=== PATIENT | male | born 1990 | race Caucasian/White ===

== ENCOUNTER 2017-10-15 16:36 | Inpatient (IN) | payer MEDICAID ==
[~2017-10-15] VITALS: Ht 171.4 cm; Wt 81.6 kg
[2017-10-15] MEDS ORDERED: MORPHINE SULFATE 2 MG/ML CPJ (NOT FOR IM USE) IV ONE (23:45)
[2017-10-15] MEDS ORDERED: FAMOTIDINE 20MG/2ML VIAL IV SCH (23:45)
[2017-10-15] MEDS ORDERED: ONDANSETRON HCL 4MG/2ML VIAL IV ONE (23:45)
[2017-10-15 23:58] LABS: HEMATOCRIT. 45.3 % (42.0-52.0); HEMOGLOBIN. 15.7 g/dL (14.0-18.0); MEAN CORPUSCULAR HEMOGLOBIN 34.5 pg (28.0-32.0); MEAN CORPUSCULAR VOLUME 99.5 fL (80.0-94.0); PLATELET 204 x1000/uL (130-400); RED BLOOD CELL COUNT 4.55 mill/uL (4.7-6.1); RED CELL DISTRIBUTION WIDTH 12.4 % (11.6-14.6)
[2017-10-16 00:04] LABS: CHLORIDE 98 mEq/L (98-107)
[2017-10-16] MEDS ORDERED: MORPHINE SULFATE 4 MG/ML CPJ (NOT FOR IM USE) IV ONE ×2 (00:15→01:30)
[2017-10-16 01:20] LABS: PLATELET ESTIMATE NORMAL
[2017-10-16] MEDS ORDERED: SODIUM CHLORIDE 0.9% 1,000 ML IV ONE ×2 (01:21→02:12)
[2017-10-16] MEDS ORDERED: ONDANSETRON 4MG ODT PO ONE (01:30)
[2017-10-16] MEDS ORDERED: MAGNESIUM/ALUMINUM HYDROXIDE/SIMETHICONE 30ML UDC PO ONE (01:30)
[2017-10-16] MEDS ORDERED: PIPERACILLIN/TAZ 2.25G PREMIX 50 ML IV ONE (03:00)
[2017-10-16 03:05] LABS: ETHANOL BLOOD < 10 mg/dL
[2017-10-16 04:25] LABS: CLARITY URINE CLEAR (CLEAR); COLOR URINE ORANGE (YELLOW); KETONES URINE 3+ (NEGATIVE); LEUKOCYTE ESTERASE URINE 1+ (NEGATIVE); NITRITE URINE POSITIVE (NEGATIVE); OCCULT BLOOD URINE NEGATIVE (NEGATIVE); PH URINE 7.5 (4.5-8.0); PROTEIN URINE 1+ (NEGATIVE)
[2017-10-16 04:36] LABS: *AMPHETAMINES SCREEN URINE NEGATIVE (NEGATIVE); *BARBITURATES SCREEN URINE NEGATIVE (NEGATIVE); *BENZODIAZEPINES SCREEN URINE NEGATIVE (NEGATIVE); *COCAINE SCREEN URINE NEGATIVE (NEGATIVE); METHADONE URINE SCREEN NEGATIVE (NEGATIVE)
[2017-10-16 04:37] LABS: CANNABINOID URINE SCREEN PRESUMTIVE POSITIVE (NEGATIVE); OPIATES URINE SCREEN PRESUMTIVE POSITIVE (NEGATIVE); PHENCYCLIDINE URINE SCREEN NEGATIVE (NEGATIVE)
[2017-10-16] MEDS: CEFTRIAXONE 1 G PREMIX 50 ML IV NR ×2 (05:50→06:12)
[2017-10-16] MEDS ORDERED: KETOROLAC 15MG/ML VIAL IV PRN (09:00)
[2017-10-16] MEDS ORDERED: ONDANSETRON HCL 4MG/2ML VIAL IV PRN (09:00)
[2017-10-16] MEDS ORDERED: DOCUSATE SODIUM 100MG CAPSULE PO PRN (09:00)
[2017-10-16] MEDS ORDERED: ACETAMINOPHEN 325MG TABLET PO PRN (09:00)
[2017-10-16] MEDS ORDERED: IPRATROPIUM/ALBUTEROL 0.5-3(2.5)MG/3ML NEB INH PRN (09:00)
[2017-10-16] MEDS ORDERED: MAGNESIUM/ALUMINUM HYDROXIDE/SIMETHICONE 30ML UDC PO PRN (09:00)
[2017-10-16] MEDS ORDERED: NA PHOS,M-B/NA PHOS,DI-BA ENEMA 118ML PR PRN (09:00)
[2017-10-16] MEDS ORDERED: DIPHENHYDRAMINE 50MG/ML VIAL IV PRN (09:00)
[2017-10-16] MEDS ORDERED: GUAIFENESIN 200MG/10ML SUGAR FREE UDC PO PRN (09:00)
[2017-10-16] MEDS ORDERED: CLONIDINE 0.1MG TABLET PO PRN (09:00)
[2017-10-16] MEDS ORDERED: LORAZEPAM 0.5MG TABLET PO PRN (09:00)
[2017-10-16 09:49] LABS: HEMOGLOBIN. 15.2 g/dL (14.0-18.0); MEAN CORPUSCULAR HEMOGLOBIN 35.3 pg (28.0-32.0); MEAN CORPUSCULAR VOLUME 100.1 fL (80.0-94.0); MEAN PLATELET VOLUME 9.8 fl (7.4-10.4); PLATELET 170 x1000/uL (130-400); RED CELL DISTRIBUTION WIDTH 12.5 % (11.6-14.6)
[2017-10-16 09:58] LABS: AMYLASE 81 IU/L (25-115); CHLORIDE 106 mEq/L (98-107)
[2017-10-16 11:25] LABS: PLATELET ESTIMATE NORMAL
[2017-10-16 12:00] VITALS: BP 136/92
[2017-10-16] MEDS: SUCRALFATE 1 G/10 ML UDC PO SCH ×3 (12:24→20:08)
[2017-10-16] MEDS: FAMOTIDINE 20MG/2ML VIAL IV SCH ×2 (13:24→20:08)
[2017-10-16] MEDS: SODIUM CHLORIDE 0.9% 1,000 ML IV SCH ×2 (15:29→18:28)
[2017-10-16 16:00] VITALS: BP 140/96
[2017-10-16] MEDS ORDERED: ZOLPIDEM TARTRATE 5MG TABLET PO PRN (19:00)
[2017-10-16 20:00] VITALS: BP 146/95
[2017-10-17] VITALS: BP 145/95
[2017-10-17 04:00] VITALS: BP 138/87
[2017-10-17] MEDS: SODIUM CHLORIDE 0.9% 1,000 ML IV SCH ×2 (06:00→08:00)
[2017-10-17] MEDS: SUCRALFATE 1 G/10 ML UDC PO SCH ×2 (06:22→12:20)
[2017-10-17 08:00] VITALS: BP 131/88
[2017-10-17] MEDS: FAMOTIDINE 20MG/2ML VIAL IV SCH (09:22)
[2017-10-17 11:19] VITALS: BP 131/88
[2017-10-17 12:00] VITALS: BP 133/89
== END 2017-10-17 12:38 | disposition home or self-care (01) | DRG 282 ==
LOC: ER 19:27 → ENRESERV 10-16 10:19 → 6EST 10-16 11:44
PROVIDERS: ADMIT Internal Medicine; ATTEND Internal Medicine
DX: K85.20 Alcohol induced acute pancreatitis without necrosis or infection (principal); K70.0 Alcoholic fatty liver; N39.0 Urinary tract infection, site not specified; F10.10 Alcohol abuse, uncomplicated; F17.210 Nicotine dependence, cigarettes, uncomplicated
CPT/HCPCS: 36415; 74176; 76705; 80053; 80305; 81003; 82150; 83036; 83605; 83690; 85025; 87086; 96361; 96365; 96375; 96376; 99285; G0482; J0696; J1885; J2270; J2405; J3490; J7030

== ENCOUNTER 2018-08-28 22:31 | Emergency (ER) | payer MEDICAID | END 2018-08-28 23:45 | disposition left against medical advice (07) | LOC: ER 22:31 | DX: Z53.21 Procedure and treatment not carried out due to patient leaving prior to being seen by health care provider (principal) ==

== ENCOUNTER 2018-09-14 07:17 | Inpatient (IN) | payer MEDICAID ==
[~2018-09-14] VITALS: Ht 172.7 cm; Wt 5.9 kg
[2018-09-14] MEDS ORDERED: GABA-533 MT (07:36)
[2018-09-14] MEDS ORDERED: ONDANSETRON HCL 4MG/2ML INJ IV STA (13:38)
[2018-09-14] MEDS ORDERED: SODIUM CHLORIDE 0.9% 1,000 ML IV ONE ×2 (13:38→16:45)
[2018-09-14] MEDS ORDERED: LORAZEPAM 1MG TABLET PO ONE (13:45)
[2018-09-14 14:19] LABS: BASOPHILS % 1.3 % (0.0-2.0); EOSINOPHILS % 0.5 % (0.0-5.0); HEMATOCRIT. 48.5 % (42.0-52.0); LYMPHOCYTES % 19.4 % (20.0-50.0); MEAN CORPUSCULAR HEMOGLOBIN 33.2 pg (28.0-32.0); MEAN CORPUSCULAR VOLUME 94.9 fL (80.0-94.0); MONOCYTES % 7.4 % (2.0-8.0); NEUTROPHILS % 71.4 % (40.0-76.0); PLATELET 226 x1000/uL (130-400); RED BLOOD CELL COUNT 5.11 mill/uL (4.7-6.1); RED CELL DISTRIBUTION WIDTH 13.2 % (11.6-14.6)
[2018-09-14 14:23] LABS: CHLORIDE 103 mEq/L (98-107)
[2018-09-14 14:25] LABS: PROTHROMBIN TIME 10.3 sec (9.1-11.1)
[2018-09-14] MEDS ORDERED: MORPHINE SULFATE 4 MG/ML CPJ (NOT FOR IM USE) IV ONE ×2 (14:30→16:15)
[2018-09-14 14:31] LABS: ETHANOL BLOOD 116 mg/dL
[2018-09-14] MEDS ORDERED: ONDANSETRON HCL 4MG/2ML INJ IV PRN (16:45)
[2018-09-14] MEDS ORDERED: LORAZEPAM 2MG/ML CPJ IV PRN (16:45)
[2018-09-14] MEDS ORDERED: HYDROCODONE/ACETAMINOPHEN 5/325MG TABLET PO PRN (16:45)
[2018-09-14 18:20] VITALS: BP 148/64
[2018-09-14] MEDS ORDERED: SODIUM CHLORIDE 0.9% 1,000 ML IV SCH (18:30)
[2018-09-14] MEDS: ENOXAPARIN 40MG/0.4ML SYR SUBCUT SCH (19:51)
[2018-09-14] MEDS: THIAMINE HCL 100MG TABLET PO SCH (19:51)
[2018-09-14] MEDS: MORPHINE SULFATE 4 MG/ML CPJ (NOT FOR IM USE) IV PRN ×2 (19:52→23:55)
[2018-09-14 20:00] VITALS: BP 139/74
[2018-09-14 23:02] LABS: CLARITY URINE CLEAR (CLEAR); COLOR URINE ORANGE (YELLOW); KETONES URINE 3+ (NEGATIVE); LEUKOCYTE ESTERASE URINE TRACE (NEGATIVE); NITRITE URINE POSITIVE (NEGATIVE); OCCULT BLOOD URINE NEGATIVE (NEGATIVE); PH URINE 5.5 (4.5-8.0); PROTEIN URINE TRACE (NEGATIVE); SPECIFIC GRAVITY URINE 1.029 (1.005-1.030)
[2018-09-14 23:15] LABS: *AMPHETAMINES SCREEN URINE NEGATIVE (NEGATIVE); *BARBITURATES SCREEN URINE NEGATIVE (NEGATIVE); *BENZODIAZEPINES SCREEN URINE NEGATIVE (NEGATIVE); *COCAINE SCREEN URINE NEGATIVE (NEGATIVE); METHADONE URINE SCREEN NEGATIVE (NEGATIVE); OPIATES URINE SCREEN PRESUMTIVE POSITIVE (NEGATIVE); PHENCYCLIDINE URINE SCREEN NEGATIVE (NEGATIVE)
[2018-09-14 23:16] LABS: CANNABINOID URINE SCREEN PRESUMTIVE POSITIVE (NEGATIVE)
[2018-09-14] MEDS ORDERED: CLONIDINE 0.1MG TABLET PO PRN (23:45)
[2018-09-14] MEDS: SODIUM CHLORIDE 0.9% 1,000 ML IV SCH (23:58)
[2018-09-15] VITALS: BP 169/76
[2018-09-15 04:00] VITALS: BP 134/78
[2018-09-15 04:05] VITALS: BP 134/78
[2018-09-15] MEDS: THIAMINE HCL 100MG TABLET PO SCH (09:50)
[2018-09-15 11:28] LABS: BASOPHILS % 1.4 % (0.0-2.0); EOSINOPHILS % 2.1 % (0.0-5.0); HEMATOCRIT. 42.3 % (42.0-52.0); HEMOGLOBIN. 14.5 g/dL (14.0-18.0); LYMPHOCYTES % 18.9 % (20.0-50.0); MEAN CORPUSCULAR HEMOGLOBIN 32.8 pg (28.0-32.0); MEAN CORPUSCULAR VOLUME 95.7 fL (80.0-94.0); MEAN PLATELET VOLUME 9.7 fl (7.4-10.4); MONOCYTES % 11.4 % (2.0-8.0); NEUTROPHILS % 66.2 % (40.0-76.0); PLATELET 185 x1000/uL (130-400); RED BLOOD CELL COUNT 4.42 mill/uL (4.7-6.1); RED CELL DISTRIBUTION WIDTH 13.2 % (11.6-14.6)
[2018-09-15 11:35] LABS: CHLORIDE 103 mEq/L (98-107)
[2018-09-15 12:00] VITALS: BP 108/89
[2018-09-15] MEDS: SODIUM CHLORIDE 0.9% 1,000 ML IV SCH ×2 (12:58→20:45)
[2018-09-15] MEDS: CHLORDIAZEPOXIDE 5 MG CAPSULE PO SCH ×2 (14:45→21:43)
[2018-09-15 16:00] VITALS: BP 135/86
[2018-09-15 20:00] VITALS: BP 135/102
[2018-09-15] MEDS: ENOXAPARIN 40MG/0.4ML SYR SUBCUT SCH (20:45)
[2018-09-15] MEDS ORDERED: CEFTRIAXONE 1 G PREMIX 50 ML IV SCH (22:00)
[2018-09-16] VITALS: BP 138/72
[2018-09-16] MEDS: MORPHINE SULFATE 4 MG/ML CPJ (NOT FOR IM USE) IV PRN (03:12)
[2018-09-16] MEDS: SODIUM CHLORIDE 0.9% 1,000 ML IV SCH ×2 (03:12→08:28)
[2018-09-16 04:00] VITALS: BP 128/84
[2018-09-16] MEDS: CHLORDIAZEPOXIDE 5 MG CAPSULE PO SCH ×2 (05:21→13:52)
[2018-09-16 06:33] LABS: BASOPHILS % 1.4 % (0.0-2.0); EOSINOPHILS % 2.2 % (0.0-5.0); MEAN CORPUSCULAR HEMOGLOBIN 33.3 pg (28.0-32.0); MEAN CORPUSCULAR VOLUME 95.6 fL (80.0-94.0); MEAN PLATELET VOLUME 9.9 fl (7.4-10.4); MONOCYTES % 12.1 % (2.0-8.0); NEUTROPHILS % 62.3 % (40.0-76.0); PLATELET 173 x1000/uL (130-400); RED CELL DISTRIBUTION WIDTH 13.1 % (11.6-14.6)
[2018-09-16 06:34] LABS: CHLORIDE 108 mEq/L (98-107)
[2018-09-16 06:40] LABS: PHOSPHORUS 3.2 mg/dL (2.5-4.9)
[2018-09-16 08:22] VITALS: BP 137/94
[2018-09-16] MEDS: THIAMINE HCL 100MG TABLET PO SCH (08:28)
[2018-09-16 12:00] VITALS: BP 130/70
[2018-09-16 13:09] VITALS: BP 139/72
[2018-09-16] MEDS ORDERED: SODIUM POLYSTYRENE SULFONATE 15 G/60 ML BOT PO SCH (14:00)
[2018-09-16 14:35] VITALS: BP 130/70
== END 2018-09-16 15:04 | disposition home or self-care (01) | DRG 282 ==
LOC: ER 07:17 → 8WST 16:26 → ENRESERV 17:05
PROVIDERS: ADMIT Internal Medicine Nephrology; ATTEND Internal Medicine Nephrology
DX: K85.20 Alcohol induced acute pancreatitis without necrosis or infection (principal); K76.0 Fatty (change of) liver, not elsewhere classified; G62.9 Polyneuropathy, unspecified; F10.239 Alcohol dependence with withdrawal, unspecified; F17.200 Nicotine dependence, unspecified, uncomplicated; F32.9 Major depressive disorder, single episode, unspecified; F41.9 Anxiety disorder, unspecified; K86.1 Other chronic pancreatitis
CPT/HCPCS: 36415; 80048; 80305; 83735; 84100; 96374; 99285; J0696; J1650; J2270; J2405; J7030

== ENCOUNTER 2019-05-30 21:31 | Inpatient (IN) | payer MEDICAID ==
[~2019-05-30] VITALS: Ht 171.4 cm; Wt 81.6 kg
[2019-05-30] MEDS: BLOOD SUGAR DIAGNOSTIC STRIP TEST SCH (21:00)
[~2019-05-30 21:31] MED LIST: GABA-533 MT
[2019-05-30] MEDS ORDERED: SODIUM CHLORIDE 0.9% 1,000 ML IV ONE (22:19)
[2019-05-30] MEDS ORDERED: CHLORDIAZEPOXIDE 25MG CAPSULE PO ONE (22:30)
[2019-05-30 23:10] LABS: BASOPHILS % 0.6 % (0.0-2.0); EOSINOPHILS % 0.3 % (0.0-5.0); HEMATOCRIT. 44.7 % (42.0-52.0); HEMOGLOBIN. 15.4 g/dL (14.0-18.0); MEAN CORPUSCULAR HEMOGLOBIN 33.7 pg (28.0-32.0); MEAN CORPUSCULAR VOLUME 97.9 fL (80.0-94.0); MEAN PLATELET VOLUME 10.1 fl (7.4-10.4); MONOCYTES % 6.2 % (2.0-8.0); NEUTROPHILS % 84.9 % (40.0-76.0); PLATELET 229 x1000/uL (130-400); RED BLOOD CELL COUNT 4.57 mill/uL (4.7-6.1); RED CELL DISTRIBUTION WIDTH 11.9 % (11.6-14.6)
[2019-05-30 23:13] LABS: CLARITY URINE CLEAR (CLEAR); COLOR URINE DARK YELLOW (YELLOW); KETONES URINE 1+ (NEGATIVE); LEUKOCYTE ESTERASE URINE NEGATIVE (NEGATIVE); NITRITE URINE NEGATIVE (NEGATIVE); OCCULT BLOOD URINE NEGATIVE (NEGATIVE); PH URINE 5.5 (4.5-8.0); PROTEIN URINE TRACE (NEGATIVE)
[2019-05-30 23:16] LABS: CHLORIDE 106 mEq/L (98-107)
[2019-05-30 23:20] LABS: ETHANOL BLOOD < 10 mg/dL
[2019-05-30 23:23] LABS: *AMPHETAMINES SCREEN URINE NEGATIVE (NEGATIVE); *BARBITURATES SCREEN URINE NEGATIVE (NEGATIVE)
[2019-05-30 23:24] LABS: *BENZODIAZEPINES SCREEN URINE PRESUMTIVE POSITIVE (NEGATIVE); *COCAINE SCREEN URINE NEGATIVE (NEGATIVE); CANNABINOID URINE SCREEN PRESUMTIVE POSITIVE (NEGATIVE); METHADONE URINE SCREEN NEGATIVE (NEGATIVE); OPIATES URINE SCREEN NEGATIVE (NEGATIVE); PHENCYCLIDINE URINE SCREEN NEGATIVE (NEGATIVE)
[2019-05-31] MEDS ORDERED: PIPERACILLIN/TAZOBACTAM 3.375GM/50ML PREMIX IV SCH (00:15)
[2019-05-31] MEDS ORDERED: CHLORDIAZEPOXIDE 25MG CAPSULE PO SCH (00:15)
[2019-05-31] MEDS ORDERED: MORPHINE SULFATE 4 MG/ML CPJ (NOT FOR IM USE) IV SCH (00:15)
[2019-05-31] MEDS ORDERED: FAMOTIDINE 20MG/2ML VIAL IV SCH (03:00)
[2019-05-31] MEDS ORDERED: HYDROCODONE/ACETAMINOPHEN 10/325MG TABLET PO PRN (03:00)
[2019-05-31] MEDS ORDERED: ONDANSETRON HCL 4MG/2ML INJ IV PRN (03:15)
[2019-05-31] MEDS ORDERED: KETOROLAC 30MG/ML VIAL IV SCH (03:15)
[2019-05-31] MEDS ORDERED: DEXT 5%/0.9% NACL 1,000 ML IV SCH (03:15)
[2019-05-31] MEDS: MORPHINE SULFATE 2 MG/ML CPJ (NOT FOR IM USE) IV PRN ×5 (04:01→22:57)
[2019-05-31] MEDS ORDERED: DEXT 5%/0.45% NACL 1000ML 1,000 ML IV SCH (07:48)
[2019-05-31 08:00] VITALS: BP 157/92
[2019-05-31] MEDS ORDERED: GUAIFENESIN 200MG/10ML SUGAR FREE UDC PO PRN (08:00)
[2019-05-31] MEDS ORDERED: ACETAMINOPHEN 650MG SUPP PR PRN (08:00)
[2019-05-31] MEDS ORDERED: NA PHOS,M-B/NA PHOS,DI-BA ENEMA 118ML PR PRN (08:00)
[2019-05-31] MEDS ORDERED: MAGNESIUM/ALUMINUM HYDROXIDE/SIMETHICONE 30ML UDC PO PRN (08:00)
[2019-05-31] MEDS ORDERED: DIPHENHYDRAMINE 50MG/ML VIAL IV PRN (08:00)
[2019-05-31] MEDS ORDERED: CLONIDINE 0.1MG TABLET PO PRN (08:00)
[2019-05-31] MEDS ORDERED: IPRATROPIUM/ALBUTEROL 0.5-3(2.5)MG/3ML NEB HHN PRN (08:00)
[2019-05-31] MEDS ORDERED: ACETAMINOPHEN 325MG TABLET PO PRN (08:00)
[2019-05-31] MEDS ORDERED: HYDROCODONE/APAP 7.5/325MG 1 TAB TABLET PO PRN ×2 (08:00)
[2019-05-31] MEDS ORDERED: ACETAMINOPHEN 650MG/20.3ML UDC GT PRN (08:00)
[2019-05-31] MEDS ORDERED: HYDRALAZINE 20MG/ML VIAL IV PRN (08:00)
[2019-05-31] MEDS ORDERED: DEXTROSE 50% WATER 50ML SYRINGE IV PRN (08:00)
[2019-05-31] MEDS ORDERED: DOCUSATE SODIUM 100MG CAPSULE PO PRN (08:00)
[2019-05-31] MEDS ORDERED: HYDROCODONE/ACETAMINOPHEN 5/325MG TABLET PO PRN (08:00)
[2019-05-31 08:51] LABS: HEMATOCRIT. 43.3 % (42.0-52.0); HEMOGLOBIN. 14.9 g/dL (14.0-18.0); MEAN CORPUSCULAR HEMOGLOBIN 33.5 pg (28.0-32.0); MEAN CORPUSCULAR VOLUME 97.2 fL (80.0-94.0); MEAN PLATELET VOLUME 10.1 fl (7.4-10.4); PLATELET 210 x1000/uL (130-400); RED BLOOD CELL COUNT 4.45 mill/uL (4.7-6.1); RED CELL DISTRIBUTION WIDTH 12.1 % (11.6-14.6)
[2019-05-31 08:57] LABS: CHLORIDE 109 mEq/L (98-107)
[2019-05-31 09:14] LABS: PLATELET ESTIMATE NORMAL
[2019-05-31] MEDS ORDERED: HYDRALAZINE 10 MG in SODIUM CHLORIDE 0.9% 49.5 ML IV PRN (10:45)
[2019-05-31 11:14] LABS: HEPATITIS B SURFACE ANTIGEN NEGATIVE
[2019-05-31 11:28] VITALS: BP 157/92
[2019-05-31 11:44] LABS: HEPATITIS A AB IGM NEGATIVE (NEGATIVE)
[2019-05-31 12:00] VITALS: BP 157/92
[2019-05-31] MEDS: INSULIN LISPRO 100 UNITS/ML SUBCUT SCH ×3 (12:50→21:00)
[2019-05-31] MEDS: BLOOD SUGAR DIAGNOSTIC STRIP TEST SCH ×2 (13:08→16:35)
[2019-05-31] MEDS: ENOXAPARIN 40MG/0.4ML SYR SUBCUT SCH (13:08)
[2019-05-31] MEDS: SODIUM CHLORIDE 0.9% INJ 3ML FLUSH IVF SCH (15:17)
[2019-05-31] MEDS: METRONIDAZOLE 500 MG PREMIX 100 ML IV SCH ×2 (15:17→22:59)
[2019-05-31 16:00] VITALS: BP 149/101
[2019-05-31] MEDS: DOCUSATE SODIUM 100MG CAPSULE PO SCH (16:35)
[2019-05-31 20:00] VITALS: BP 145/88
[2019-05-31] MEDS: PANTOPRAZOLE 40MG DR TABLET PO SCH (20:56)
[2019-06-01] VITALS: BP 142/92
[2019-06-01] MEDS: ONDANSETRON HCL 4MG/2ML INJ IV PRN ×2 (03:02→14:05)
[2019-06-01] MEDS: MORPHINE SULFATE 2 MG/ML CPJ (NOT FOR IM USE) IV PRN ×4 (03:02→16:35)
[2019-06-01] MEDS: SODIUM CHLORIDE 0.9% INJ 3ML FLUSH IVF SCH ×4 (03:02→21:57)
[2019-06-01 04:00] VITALS: BP 144/83
[2019-06-01] MEDS: METRONIDAZOLE 500 MG PREMIX 100 ML IV SCH ×3 (06:05→21:42)
[2019-06-01 07:24] LABS: HEMATOCRIT. 43.6 % (42.0-52.0); HEMOGLOBIN. 15.2 g/dL (14.0-18.0); MEAN CORPUSCULAR HEMOGLOBIN 34.2 pg (28.0-32.0); MEAN PLATELET VOLUME 10.5 fl (7.4-10.4); PLATELET 192 x1000/uL (130-400); RED BLOOD CELL COUNT 4.45 mill/uL (4.7-6.1); RED CELL DISTRIBUTION WIDTH 12.1 % (11.6-14.6)
[2019-06-01 07:36] LABS: CHLORIDE 105 mEq/L (98-107)
[2019-06-01 07:45] LABS: LDL CHOLESTEROL 58 mg/dL (5-100)
[2019-06-01 07:47] LABS: HDL CHOLESTEROL 56 mg/dL (40-59)
[2019-06-01] MEDS: INSULIN LISPRO 100 UNITS/ML SUBCUT SCH ×4 (07:50→21:00)
[2019-06-01] MEDS: BLOOD SUGAR DIAGNOSTIC STRIP TEST SCH ×4 (07:52→21:46)
[2019-06-01 08:00] VITALS: BP 142/95
[2019-06-01] MEDS: PANTOPRAZOLE 40MG DR TABLET PO SCH ×2 (08:14→21:37)
[2019-06-01] MEDS: DOCUSATE SODIUM 100MG CAPSULE PO SCH ×2 (11:26→16:35)
[2019-06-01] MEDS: ENOXAPARIN 40MG/0.4ML SYR SUBCUT SCH (11:26)
[2019-06-01 12:00] VITALS: BP 145/96
[2019-06-01 14:29] LABS: PLATELET ESTIMATE NORMAL
[2019-06-01 16:00] VITALS: BP 145/95
[2019-06-01] MEDS: CHLORDIAZEPOXIDE 25MG CAPSULE PO SCH (16:35)
[2019-06-01 20:00] VITALS: BP 142/96
[2019-06-02] VITALS: BP 148/68
[2019-06-02] MEDS: CHLORDIAZEPOXIDE 25MG CAPSULE PO SCH ×3 (00:56→17:47)
[2019-06-02] MEDS: MORPHINE SULFATE 2 MG/ML CPJ (NOT FOR IM USE) IV PRN ×4 (00:57→21:10)
[2019-06-02 04:00] VITALS: BP 136/95
[2019-06-02] MEDS: METRONIDAZOLE 500 MG PREMIX 100 ML IV SCH ×3 (06:36→21:09)
[2019-06-02] MEDS: SODIUM CHLORIDE 0.9% INJ 3ML FLUSH IVF SCH ×3 (06:36→21:16)
[2019-06-02] MEDS: BLOOD SUGAR DIAGNOSTIC STRIP TEST SCH ×4 (07:38→21:07)
[2019-06-02] MEDS: INSULIN LISPRO 100 UNITS/ML SUBCUT SCH ×4 (07:50→21:00)
[2019-06-02 08:00] VITALS: BP 142/98
[2019-06-02 08:12] LABS: HEMATOCRIT. 43.5 % (42.0-52.0); HEMOGLOBIN. 14.9 g/dL (14.0-18.0); MEAN CORPUSCULAR HEMOGLOBIN 33.4 pg (28.0-32.0); MEAN CORPUSCULAR VOLUME 97.6 fL (80.0-94.0); MEAN PLATELET VOLUME 10.8 fl (7.4-10.4); PLATELET 179 x1000/uL (130-400); RED BLOOD CELL COUNT 4.46 mill/uL (4.7-6.1); RED CELL DISTRIBUTION WIDTH 12.1 % (11.6-14.6)
[2019-06-02 08:34] LABS: CHLORIDE 102 mEq/L (98-107)
[2019-06-02] MEDS: DOCUSATE SODIUM 100MG CAPSULE PO SCH ×2 (10:01→17:47)
[2019-06-02] MEDS: PANTOPRAZOLE 40MG DR TABLET PO SCH ×2 (10:01→20:58)
[2019-06-02 10:03] LABS: PLATELET ESTIMATE NORMAL
[2019-06-02] MEDS: HYDROCODONE/ACETAMINOPHEN 10/325MG TABLET PO PRN ×2 (10:06→16:34)
[2019-06-02] MEDS: ENOXAPARIN 40MG/0.4ML SYR SUBCUT SCH (11:00)
[2019-06-02 12:00] VITALS: BP 137/98
[2019-06-02 16:00] VITALS: BP 133/90
[2019-06-02 20:00] VITALS: BP 143/98
[2019-06-02] MEDS: METOPROLOL TARTRATE 25MG TABLET PO SCH (23:05)
[2019-06-03] VITALS: BP 145/95
[2019-06-03] MEDS: CHLORDIAZEPOXIDE 25MG CAPSULE PO SCH ×3 (00:41→17:08)
[2019-06-03] MEDS: HYDROCODONE/ACETAMINOPHEN 10/325MG TABLET PO PRN ×2 (00:55→09:22)
[2019-06-03 04:00] VITALS: BP 127/91
[2019-06-03] MEDS: MORPHINE SULFATE 2 MG/ML CPJ (NOT FOR IM USE) IV PRN ×2 (04:35→14:22)
[2019-06-03] MEDS: SODIUM CHLORIDE 0.9% INJ 3ML FLUSH IVF SCH ×2 (05:10→14:02)
[2019-06-03] MEDS: METRONIDAZOLE 500 MG PREMIX 100 ML IV SCH ×2 (05:10→14:21)
[2019-06-03] MEDS: PANTOPRAZOLE 40MG DR TABLET PO SCH ×2 (06:20→09:19)
[2019-06-03] MEDS: BLOOD SUGAR DIAGNOSTIC STRIP TEST SCH ×4 (06:20→21:29)
[2019-06-03 07:19] LABS: BASOPHILS % 0.4 % (0.0-2.0); EOSINOPHILS % 0.9 % (0.0-5.0); HEMOGLOBIN. 13.8 g/dL (14.0-18.0); LYMPHOCYTES % 9.7 % (20.0-50.0); MEAN CORPUSCULAR HEMOGLOBIN 33.4 pg (28.0-32.0); MEAN CORPUSCULAR VOLUME 96.6 fL (80.0-94.0); MEAN PLATELET VOLUME 10.4 fl (7.4-10.4); MONOCYTES % 9.1 % (2.0-8.0); NEUTROPHILS % 79.9 % (40.0-76.0); PLATELET 176 x1000/uL (130-400); RED BLOOD CELL COUNT 4.14 mill/uL (4.7-6.1); RED CELL DISTRIBUTION WIDTH 12.1 % (11.6-14.6)
[2019-06-03 07:21] LABS: CHLORIDE 104 mEq/L (98-107)
[2019-06-03] MEDS: INSULIN LISPRO 100 UNITS/ML SUBCUT SCH ×4 (07:50→21:00)
[2019-06-03] MEDS: DOCUSATE SODIUM 100MG CAPSULE PO SCH ×2 (09:19→17:06)
[2019-06-03] MEDS: METOPROLOL TARTRATE 25MG TABLET PO SCH ×2 (09:29→21:25)
[2019-06-03] MEDS ORDERED: MAGNESIUM HYDROXIDE 400MG/5ML 30ML UDC PO PRN (10:30)
[2019-06-03] MEDS: ENOXAPARIN 40MG/0.4ML SYR SUBCUT SCH (11:00)
[2019-06-03 20:00] VITALS: BP 135/90
[2019-06-03] MEDS ORDERED: METO25TA6 MT (20:49)
[2019-06-03] MEDS ORDERED: POTASSIUM CHLORIDE 20MEQ TABLET SR PO NR (21:00)
[2019-06-03 21:32] VITALS: BP 136/90
== END 2019-06-03 22:10 | disposition home or self-care (01) | DRG 282 ==
LOC: EDBD 21:31 → ER 21:31 → 6EST 05-31 00:34 → EDBEDREQ 05-31 00:37 → EDBEDREQTM 05-31 00:37 → ENRESERV 05-31 08:12
PROVIDERS: ADMIT Family Medicine; ATTEND Family Medicine
DX: K85.20 Alcohol induced acute pancreatitis without necrosis or infection (principal); G62.1 Alcoholic polyneuropathy; D72.829 Elevated white blood cell count, unspecified; E80.6 Other disorders of bilirubin metabolism; E86.0 Dehydration; F10.10 Alcohol abuse, uncomplicated; R73.9 Hyperglycemia, unspecified; F17.210 Nicotine dependence, cigarettes, uncomplicated; Z79.899 Other long term (current) drug therapy
CPT/HCPCS: 36415; 74176; 80048; 80061; 80076; 80305; 80320; 81003; 82248; 82962; 83036; 83615; 83735; 83880; 86705; 86709; 86803; 87340; 96361; 96374; 96375; 96376; 99285; J1650; J1815; J1885; J2270; J2405; J2543; J3490; J7030; G0480

== ENCOUNTER 2019-07-09 07:26 | Emergency (ER) | payer MEDICAID ==
[~2019-07-09] VITALS: Ht 172.7 cm; Wt 83.0 kg
[~2019-07-09 07:26] MED LIST changes: +METO25TA6 MT
[2019-07-09] MEDS ORDERED: FAMOTIDINE 20MG/2ML VIAL IV ONE (10:30)
[2019-07-09] MEDS ORDERED: SODIUM CHLORIDE 0.9% 1,000 ML IV ONE (10:30)
[2019-07-09] MEDS ORDERED: ONDANSETRON HCL 4MG/2ML INJ IV ONE (10:30)
[2019-07-09 11:41] LABS: CHLORIDE 103 mEq/L (98-107)
[2019-07-09 11:54] LABS: HEMATOCRIT. 41.5 % (42.0-52.0); HEMOGLOBIN. 14.9 g/dL (14.0-18.0); MEAN CORPUSCULAR HEMOGLOBIN 33.3 pg (28.0-32.0); MEAN CORPUSCULAR VOLUME 92.8 fL (80.0-94.0); MEAN PLATELET VOLUME 9.1 fl (7.4-10.4); PLATELET 195 x1000/uL (130-400); RED BLOOD CELL COUNT 4.47 mill/uL (4.7-6.1); RED CELL DISTRIBUTION WIDTH 12.7 % (11.6-14.6)
[2019-07-09 12:30] LABS: PLATELET ESTIMATE NORMAL
[2019-07-09] MEDS ORDERED: OXYCODONE HCL/ACETAMINOPHEN 5/325MG TABLET PO ONE (12:30)
[2019-07-09 13:27] LABS: INR 1.1; PROTHROMBIN TIME 11.1 sec (9.6-11.0)
[2019-07-09 14:25] VITALS: BP 137/86
[2019-07-09 14:34] LABS: CLARITY URINE CLEAR (CLEAR); COLOR URINE ORANGE (YELLOW); KETONES URINE TRACE (NEGATIVE); LEUKOCYTE ESTERASE URINE TRACE (NEGATIVE); NITRITE URINE NEGATIVE (NEGATIVE); OCCULT BLOOD URINE NEGATIVE (NEGATIVE); PROTEIN URINE NEGATIVE (NEGATIVE); SPECIFIC GRAVITY URINE 1.018 (1.005-1.030)
== END 2019-07-09 14:29 | disposition home or self-care (01) ==
LOC: ER 07:26
DX: K29.20 Alcoholic gastritis without bleeding (principal); F10.10 Alcohol abuse, uncomplicated; I10 Essential (primary) hypertension; F12.10 Cannabis abuse, uncomplicated; F17.200 Nicotine dependence, unspecified, uncomplicated; Y90.9 Presence of alcohol in blood, level not specified
CPT/HCPCS: 36415; 80053; 81003; 83690; 85025; 85610; 96361; 96374; 96375; 99283; J2405; J3490; J7030